=== PATIENT | female | born 1990 | race Asian ===

== ENCOUNTER 2024-07-27 03:56 | Inpatient (IN) ==
[2024-07-27] MEDS ORDERED: CALCIUM CARBONATE 500 MG CHEWABLE TAB PO PRN (08:15)
[2024-07-27] MEDS ORDERED: LIDOCAINE 1% LOCAL 20 ML VIAL INFIL PRN (08:15)
--- NOTE | 2024-07-27 08:19 | History & Physical Report ---
Date of Service July 27, 2024 Assessment & Plan (1) Normal labor: Plan admit, iv, labs. pt undecided re: epidural, concerned about lack of sleep. fhts categ 1. History of Present Illness Chief Complaint: labor check Primary Care Provider: BRIT PCP 34yo at 39wks chantel presents to LD with concern for regular ctx. Was in LD yesterday am and 4cm with no labor pattern and opted to go home, did not want interventions. Then called early this am with more regular ctx and arrived in LD, initial sve per nurse 5cm. Notes painful ctx. Cannot really tell me how regular they are. +FM. No rom, No vb. PNC c/b 1. hep b infection 2. ama PNL rh pos, ri, gbs neg. OBH: sab x 1 GYNH: nl paps, no stds Allergies Allergy/AdvReac Type Severity Reaction Status Date / Time No Known Allergies Allergy Verified 07/26/24 09:35 Home Medications Medication Instructions Recorded Confirmed Type breast pump #1 ea 05/09/24 07/24/24 Rx vits no.124-ferrous fum 1 tab PO DAILY 07/26/24 07/26/24 History 27 mg iron-folic acid 800 mcg tablet ( Vitamin) Patient History Medical History (Updated 07/27/24 @ 08:18 by Hilda Garcia MD, FACOG) History of chicken pox Surgical History S/P wisdom tooth extraction Family History (Updated 12/25/23 @ 14:13 by Janee Ledezma) Denies family history of Ovarian cancer Breast cancer Colorectal cancer Social History (Updated 07/27/24 @ 04:23 by Briseyda Clarke, HAZEL) Smoking Status: Never smoker Do You Dip or Chew Tobacco: No; Hx Alcohol Use: No Hx Substance Use: No Preferred Language: Korean Communication Ability: Effective Visual Impairment: Limited Hearing Ability: Normal Microcomputer Technician Required: No Beliefs That Will Affect Care: None marital status: marital status details: Bruce Layne ([phone] Current Living Situation: Alone Current Living Situation Comment: lives in [place] working at another college, see on breaks current occupational status: employed current occupation: teacher [employer] Other Information That Helps Us Care for You: No Feels Safe at Home: Yes Safety Concerns: Feels Safe At This Time Diet: regular Assistive Devices: Glasses Review of Systems as per Subjective / HPI Physical Exam Constitutional: WD/WN, vitals as above Gastrointestinal (Abdomen): soft gravid nt Neurologic: grossly normal Psychiatric: A+Ox3, euthymic affect Genitourinary: Manual OB Exam: + cervical dilation 8 cm, + cervical effacement 100% and + station 0 OB Exam Monitor Tracing: + external FHT monitor used, + external uterine monitor used (q2-4), + category I and + normal FHT variability Results & Data Vital Signs (Past 12 Hours) Vital Signs Temp Pulse Resp BP 07/27/24 07:17 64 112/72 07/27/24 04:24 59 L 138/82 07/27/24 04:12 59 L 138/82 07/27/24 04:10 18 07/27/24 04:10 97.7 F 18 Coding Level of Care Code None Diagnoses Normal labor O80; Z37.9
[2024-07-27 09:22] LABS: Hematocrit (blood only) 38.8 % (37.0-47.0); Hemoglobin 13.2 g/dl (12.0-16.0); Mean Corpuscular Hemoglobin 29.3 pg (25.0-34.0); Mean Platelet Volume 10.8 fL (9.4-12.4); Platelet Count 211 K/uL (130-400); RDW Standard Deviation 43.9 fL (36.4-46.3); Red Blood Count 4.51 M/uL (4.20-5.40); White Blood Count 10.77 K/ul (4.8-10.8)
[2024-07-27] MEDS: SODIUM CHLORIDE 0.9% 1,000 ML IV SCH (09:30)
[2024-07-27] MEDS: fentANYL 2 MCG/ML BUPIVacaine 0.125%-NSS 100ML BAG ONE (10:16)
[2024-07-27] MEDS: BUPIVACAINE 0.25% PF 30 ML VIAL ONE (10:18)
[2024-07-27] MEDS: LIDOCAINE 2%/EPINEPHRINE 1:200,000 20 ML PF ONE (10:18)
--- NOTE | 2024-07-27 10:28 | Anesthesiology Consultation ---
Date of Service July 27, 2024 Assessment & Plan Chart Review Chart Review: Acceptable Risk for Labor Epidural Consults Requested none History Height/Weight Height: 5 ft 3 in Weight: 66.95 kg Allergies Allergy/AdvReac Type Severity Reaction Status Date / Time No Known Allergies Allergy Verified 07/26/24 09:35 Medications Home Medications Medication Instructions Recorded Confirmed Last Taken breast pump #1 ea 05/09/24 07/24/24 Unknown vits no.124-ferrous fum 1 tab PO DAILY 07/26/24 07/26/24 07/26/24 27 mg iron-folic acid 800 mcg tablet ( Vitamin) Past Medical History Medical History (Updated 07/27/24 @ 08:18 by Hilda Garcia MD, FACOG) History of chicken pox Past Family History Family History (Updated 12/25/23 @ 14:13 by Janee Ledezma) Denies family history of Ovarian cancer Breast cancer Colorectal cancer Past Surgical History Surgical History S/P wisdom tooth extraction Social History Smoking Status: Never smoker Do You Dip or Chew Tobacco: No Hx Alcohol Use: No Hx Substance Use: No substance use type: does not use Physical Exam Vital Signs Last Vital Signs Temp 36.5 C 07/27/24 04:10 Pulse 91 H 07/27/24 10:25 Resp 18 07/27/24 04:10 BP 99/58 L 07/27/24 10:21 Pulse Ox 99 07/27/24 10:25 Testing Laboratory Results 07/27/24 08:32
[2024-07-27] MEDS ORDERED: ROPIVACAINE 0.5% PF 5 MG/ML 20 ML VIAL EPI PRN (10:29)
[2024-07-27] MEDS ORDERED: NALOXONE HCL 0.4 MG/1 ML VIAL/CARP IV PRN (10:29)
[2024-07-27] MEDS ORDERED: fentaNYL citrate PF 100 MCG/2 ML VIAL EPI PRN (10:29)
[2024-07-27] MEDS ORDERED: NALOXONE HCL 1 MG in SODIUM CHLORIDE 0.9% 1,000 ML IV PRN (10:29)
[2024-07-27] MEDS ORDERED: LIDOCAINE 2% MPF LOCAL 5 ML VIAL EPI PRN (10:29)
[2024-07-27] MEDS ORDERED: diphenhydrAMINE 50 MG/ML VIAL IV PRN (10:29)
[2024-07-27] MEDS ORDERED: NALBUPHINE HCL INJ 10 MG/ML AMP IV PRN (10:29)
[2024-07-27] MEDS ORDERED: SODIUM CHLORIDE 0.9% PF INJ 10 ML VIAL EPI PRN (10:29)
[2024-07-27] MEDS ORDERED: ePHEDrine sulfate 50 MG/ML AMP IV PRN (10:29)
[2024-07-27] MEDS ORDERED: BUPIVACAINE 0.25% PF 30 ML VIAL EPI PRN (10:29)
[2024-07-27] MEDS: fentaNYL citrate PF 100 MCG/2 ML VIAL ONE (10:38)
[2024-07-27] MEDS: LIDOCAINE 2%/EPINEPHRINE 1:200,000 20 ML PF EPI STA (10:39)
[2024-07-27] MEDS: SODIUM CHLORIDE 0.9% PF INJ 10 ML VIAL ONE (10:39)
[2024-07-27] MEDS: BUPIVACAINE 0.25% PF 30 ML VIAL EPI STA (10:39)
[2024-07-27] MEDS: SODIUM CHLORIDE 0.9% PF INJ 10 ML VIAL EPI STA (10:39)
[2024-07-27] MEDS: fentaNYL citrate PF 100 MCG/2 ML VIAL EPI STA (10:39)
[2024-07-27] MEDS: ePHEDrine sulfate 50 MG/ML AMP ONE (10:39)
[2024-07-27] MEDS: OXYTOCIN 30 UNITS/NSS 30 UNITS/500 ML BAG IV PRN (14:41)
[2024-07-27] MEDS: fentANYL 2 MCG/ML BUPIVacaine 0.125%-NSS 100ML BAG EPI PRN (19:22)
[2024-07-27] MEDS ORDERED: Nursing to Pharmacy Communication SCH (23:17)
[2024-07-28] MEDS: OXYTOCIN 30 UNITS/NSS 30 UNITS/500 ML BAG IV PRN (01:40)
--- NOTE | 2024-07-28 01:45 | Delivery Summary ---
Vaginal Delivery Summary Date of Service July 28, 2024 Vaginal Delivery Summary VAVD Vacuum-assisted vaginal delivery the patient had been in labor for some time when I took over corrections caseworker at 8:30 in the morning she was 8 cm she eventually progressed to fully dilated and also had an epidural somewhere after 1 in the morning the next day she stated she was exhausted the station was +2 at this time I suggested the option of a gentle vacuum she agreed discussed risks and benefits verbal consent Bladder was drained for approximately 100 cc prior position was occiput anterior +2 station Kiwi vacuum applied with just 1 gentle pull and a very small episiotomy as she was already tearing vaginally during pushing allowed for easy delivery of the head once the head was delivered vacuum was detached gentle traction the baby easy delivery no excessive force. Live vigorous female infant Cord gases obtained cord blood obtained placenta removed with traction IV Pitocin started vaginal tearing and episiotomy were repaired tissue was notably friable hemostasis was obtained though with 3-0 Vicryl and pressure from sponge quantitative blood loss 464 mL sponge and instrument counts correct [facility] Vaginal Delivery Charge Delivery Type Details: VAVD
[2024-07-28] MEDS ORDERED: ACETAMINOPHEN 325 MG TAB PO PRN (02:19)
[2024-07-28] MEDS ORDERED: HYDROCORTISONE ACETATE 25 MG SUPP PR PRN (02:19)
[2024-07-28] MEDS ORDERED: DIPHTHER/TETAN/PERTUS Vaccine (Tdap, Adol/Adult) 0.5mL IM ONE (02:19)
[2024-07-28] MEDS ORDERED: OXYTOCIN 30 UNITS/NSS 30 UNITS/500 ML BAG IV PRN (02:19)
[2024-07-28 02:30] LABS: Base Excess Cord Arterial Bld -6.1 mEq/L (-9-1.8); Base Excess Cord Venous Blood -4.8 mEq/L (-7.7-1.9); CO2 Cord Arterial Blood 47 mmHg (39.1-73.5); Cord Venous Blood HCO3 21 mmol/L (18.4-26.8); Cord Venous Blood PCO2 38 mmHg (30.4-57.2); Cord Venous Blood PO2 30 mmHg (14.1-43.3); Cord Venous Blood pH 7.34 (7.20-7.44); HCO3 Cord Arterial Blood 21 mmol/L (19.7-28.5); Oxygen Sat Cord Arterial Blood < 60.0 % (<60); PO2 Cord Arterial Blood < 20 mmHg (4.1-31.7); pH Cord Arterial Blood 7.26 (7.1-7.38)
[2024-07-28] MEDS: IBUPROFEN 600 MG TAB PO PRN (03:57)
[2024-07-28] MEDS: BENZOCAINE 20% SPRY 85 APPLN/85 GM CAN EXT PRN (03:59)
--- NOTE | 2024-07-28 08:18 | Obstetrical Progress Note ---
Date of Service July 28, 2024 day 0 from vaginosis vacuum delivery patient felt somewhat lightheaded last night and still is having some vaginal bleeding otherwise is doing well feeding baby pain is controlled Assessment & Plan (1) Normal labor: Vacuum-assisted vaginal delivery will watch closely Results & Data Vital Signs (Past 12 Hours) Vital Signs Temp Pulse Pulse Resp BP BP Pulse Ox 07/28/24 04:25 98.4 F 89 16 122/75 98 07/28/24 04:13 110 H 109/70 07/28/24 03:47 118 H 112/66 07/28/24 03:16 97 H 111/70 07/28/24 03:15 18 07/28/24 02:45 18 07/28/24 02:43 120 H 118/69 07/28/24 02:30 16 07/28/24 02:28 126 H 118/65 07/28/24 02:15 16 07/28/24 02:12 126 H 124/61 07/28/24 02:00 16 07/28/24 01:57 115 H 114/58 L 07/28/24 01:45 97.7 F 18 07/28/24 01:43 99 H 107/58 L 07/28/24 01:40 111 H 98 07/28/24 01:35 109 H 98 07/28/24 01:30 114 H 98 07/28/24 01:28 116 H 116/61 07/28/24 01:25 111 H 99 07/28/24 01:20 120 H 99 07/28/24 01:15 102 H 99 07/28/24 01:14 100 H 140/91 07/28/24 01:10 84 98 07/28/24 01:05 81 99 07/28/24 01:03 106 H 93 07/28/24 01:00 74 98 07/28/24 00:59 22 07/28/24 00:59 22 07/28/24 00:58 130 H 128/60 92 07/28/24 00:55 82 98 07/28/24 00:52 82 93 07/28/24 00:50 81 97 07/28/24 00:45 86 99 07/28/24 00:43 82 118/62 07/28/24 00:40 99 H 90 07/28/24 00:35 92 H 98 07/28/24 00:33 91 H 92 07/28/24 00:30 99 07/28/24 00:30 86 07/28/24 00:30 83 128/86 07/28/24 00:25 120 H 96 07/28/24 00:24 92 H 89 L 07/28/24 00:20 89 98 07/28/24 00:15 72 99 07/28/24 00:10 72 99 07/28/24 00:05 77 99 07/28/24 00:00 70 99 07/27/24 23:58 71 133/80 07/27/24 23:55 81 98 07/27/24 23:50 74 99 07/27/24 23:45 81 98 07/27/24 23:44 72 145/82 H 07/27/24 23:40 71 99 07/27/24 23:35 75 98 07/27/24 23:30 72 98 07/27/24 23:29 72 18 140/82 07/27/24 23:25 88 97 07/27/24 23:20 74 98 07/27/24 23:15 72 99 07/27/24 23:13 73 132/80 07/27/24 23:10 76 98 07/27/24 23:09 98.6 F 07/27/24 23:05 73 97 07/27/24 23:00 72 18 98 07/27/24 22:57 75 137/84 07/27/24 22:55 71 98 07/27/24 22:50 71 98 07/27/24 22:45 69 98 07/27/24 22:42 67 138/81 07/27/24 22:40 74 98 07/27/24 22:35 68 99 07/27/24 22:30 73 99 07/27/24 22:28 69 135/83 07/27/24 22:25 72 98 07/27/24 22:20 80 98 07/27/24 22:15 68 98 07/27/24 22:13 67 111/60 07/27/24 22:10 69 97 07/27/24 22:05 68 97 07/27/24 22:00 69 97 07/27/24 21:59 72 117/69 07/27/24 21:58 16 07/27/24 21:58 16 07/27/24 21:55 97 H 96 07/27/24 21:50 74 96 07/27/24 21:45 88 97 07/27/24 21:42 75 119/75 07/27/24 21:40 76 97 07/27/24 21:35 75 96 07/27/24 21:30 87 97 07/27/24 21:29 16 07/27/24 21:29 16 07/27/24 21:28 75 118/75 07/27/24 21:25 83 98 07/27/24 21:20 75 97 07/27/24 21:15 64 97 07/27/24 21:13 98.4 F 07/27/24 21:10 85 97 07/27/24 21:05 68 98 07/27/24 21:03 97 H 89 L 07/27/24 21:00 67 97 07/27/24 20:59 86 20 131/62 07/27/24 20:55 70 88 L 07/27/24 20:50 76 96 07/27/24 20:45 65 97 07/27/24 20:43 68 112/68 07/27/24 20:40 115 H 97 07/27/24 20:35 94 H 97 07/27/24 20:30 70 97 07/27/24 20:29 20 07/27/24 20:29 20 07/27/24 20:28 68 101/58 L 07/27/24 20:25 62 98 07/27/24 20:20 75 97 O2 Del Method 07/28/24 04:25 Room Air 07/28/24 04:13 07/28/24 03:47 07/28/24 03:16 07/28/24 03:15 07/28/24 02:45 07/28/24 02:43 07/28/24 02:30 07/28/24 02:28 07/28/24 02:15 07/28/24 02:12 07/28/24 02:00 07/28/24 01:57 07/28/24 01:45 07/28/24 01:43 07/28/24 01:40 07/28/24 01:35 07/28/24 01:30 07/28/24 01:28 07/28/24 01:25 07/28/24 01:20 07/28/24 01:15 07/28/24 01:14 07/28/24 01:10 07/28/24 01:05 07/28/24 01:03 07/28/24 01:00 07/28/24 00:59 07/28/24 00:59 07/28/24 00:58 07/28/24 00:55 07/28/24 00:52 07/28/24 00:50 07/28/24 00:45 07/28/24 00:43 07/28/24 00:40 07/28/24 00:35 07/28/24 00:33 07/28/24 00:30 07/28/24 00:30 07/28/24 00:30 07/28/24 00:25 07/28/24 00:24 07/28/24 00:20 07/28/24 00:15 07/28/24 00:10 07/28/24 00:05 07/28/24 00:00 07/27/24 23:58 07/27/24 23:55 07/27/24 23:50 07/27/24 23:45 07/27/24 23:44 07/27/24 23:40 07/27/24 23:35 07/27/24 23:30 07/27/24 23:29 07/27/24 23:25 07/27/24 23:20 07/27/24 23:15 07/27/24 23:13 07/27/24 23:10 07/27/24 23:09 07/27/24 23:05 07/27/24 23:00 07/27/24 22:57 07/27/24 22:55 07/27/24 22:50 07/27/24 22:45 07/27/24 22:42 07/27/24 22:40 07/27/24 22:35 07/27/24 22:30 07/27/24 22:28 07/27/24 22:25 07/27/24 22:20 07/27/24 22:15 07/27/24 22:13 07/27/24 22:10 07/27/24 22:05 07/27/24 22:00 07/27/24 21:59 07/27/24 21:58 07/27/24 21:58 07/27/24 21:55 07/27/24 21:50 07/27/24 21:45 07/27/24 21:42 07/27/24 21:40 07/27/24 21:35 07/27/24 21:30 07/27/24 21:29 07/27/24 21:29 07/27/24 21:28 07/27/24 21:25 07/27/24 21:20 07/27/24 21:15 07/27/24 21:13 07/27/24 21:10 07/27/24 21:05 07/27/24 21:03 07/27/24 21:00 07/27/24 20:59 07/27/24 20:55 07/27/24 20:50 07/27/24 20:45 07/27/24 20:43 07/27/24 20:40 07/27/24 20:35 07/27/24 20:30 07/27/24 20:29 07/27/24 20:29 07/27/24 20:28 07/27/24 20:25 07/27/24 20:20
[2024-07-28] MEDS: PRENATAL VITAMIN 1 TAB PO SCH (08:34)
[2024-07-28] MEDS: DOCUSATE SODIUM 100 MG CAP PO SCH (08:34)
--- NOTE | 2024-07-28 09:59 | Anesthesia Procedure Note ---
Date of Service July 28, 2024 Anesthesia Post Epidural Note Vital Signs Vital Signs: Temp Pulse Resp BP Pulse Ox O2 Del Method 36.3 C L 80 16 100/62 97 Room Air 07/28/24 08:12 07/28/24 08:12 07/28/24 08:12 07/28/24 08:12 07/28/24 08:12 07/28/24 08:12 Notes Mental Status: alert / awake / arousable Nausea / Vomiting: adequately controlled Pain: adequately controlled Airway Patency, RR, SpO2: stable & adequate BP & HR: stable & adequate Hydration State: stable & adequate Neuraxial Anesthesia: was administered and sensory block is resolving Anesthetic Complications: no major complications apparent and Pt Satisfied with anesthetic care Epidural: Removed without complications and With tip intact
[2024-07-28 11:09] LABS: Hematocrit (blood only) 26.3 % (37.0-47.0); Hemoglobin 9.1 g/dl (12.0-16.0)
[2024-07-29 06:05] LABS: Hematocrit (blood only) 25.5 % (37.0-47.0); Hemoglobin 8.6 g/dl (12.0-16.0); Mean Corpuscular Hemoglobin 29.6 pg (25.0-34.0); Mean Corpuscular Hgb Conc 33.7 g/dL (32.0-36.0); Mean Corpuscular Volume 87.6 fL (80.0-100.0); Mean Platelet Volume 10.7 fL (9.4-12.4); Platelet Count 155 K/uL (130-400); RDW Coefficient of Variation 14.4 % (11.5-14.5); RDW Standard Deviation 45.4 fL (36.4-46.3); Red Blood Count 2.91 M/uL (4.20-5.40); White Blood Count 11.87 K/ul (4.8-10.8)
--- NOTE | 2024-07-29 07:15 | Obstetrical Progress Note ---
Date of Service July 29, 2024 Assessment & Plan (1) Normal labor: day #1 from vacuum deliver slightly anemic we discussed taking iron at home she is doing well continue to work on breast-feeding plan be for discharge tomorrow Subjective Ambulation: ambulating normally Voiding: no voiding problems Passing Gas:: Yes Diet Tolerance:: regular diet Lochia:: Small Physical Exam Constitutional WD/WN, vitals as above well developed and well nourished Respiratory normal respiratory effort, lungs clear to auscultation normal respiratory effort Cardiovascular RRR, no murmur, no edema Gastrointestinal (Abdomen) normal bowel sounds, soft, nontender, no hepatosplenomegaly Results & Data Vital Signs (Past 12 Hours) Vital Signs Temp Pulse Resp BP O2 Del Method 07/28/24 23:20 97.5 F L 76 16 98/54 L 07/28/24 19:30 97.3 F L 84 16 94/62 L Room Air
[2024-07-29] MEDS: bisacodyL 5 MG TABEC PO SCH (20:24)
[2024-07-30] MEDS ORDERED: bisacodyL 10 MG SUPP PR PRN (02:19)
[2024-07-30 06:23] LABS: Hematocrit (blood only) 27.5 % (37.0-47.0); Hemoglobin 9.3 g/dl (12.0-16.0)
--- NOTE | 2024-07-30 07:16 | Obstetrical Progress Note ---
Date of Service July 30, 2024 Assessment & Plan (1) Normal labor: Plan: Both mom and baby doing well. Discharge today; ready to go home. Admission and Anticipated Discharge Date Admission Date: July 27, 2024 Supervising Physician Co-Signing Physician Notes Resident Physician Supervision Note: I interviewed and examined the patient. Discussed with Dr. Carolina and agree with findings and plan as documented in the note. Any exceptions or clarifications are listed here: Doing well. Routine care. d/c home later today. Instructions given. Documented By: Katerin Figueroa MD, FACOG Subjective 2nd PPD Day following years at 39 week POG. No active complains Both mom and baby doing well. Pain: Mild, intermittent Lochia: Moderate Diet: Regular Ob diet Gas: Passed Peeing: Normal, no bladder distension Ambulation: Normally Review of Systems Review of Systems: No SOB, chest pain, leg pain No dizziness, headache, palpitation No Blurring of vision , fever Physical Exam Physical Exam: General: Alert and oriented. No acute distress. CVS: S1 S2+ No murmurs, regular rhythm. Respiratory: CTA bilaterally. No rhonchi, wheezes, or crackles. No increased work of breathing. Abdomen: Bowel sound +. Soft, nontender Uterus: Fundus firm and palpable few cm below the umbilicus. Lower extremities: No LE edema. No deep calf pain. Results & Data Vital Signs (Past 12 Hours) Vital Signs Temp Pulse Resp BP Pulse Ox O2 Del Method 07/29/24 23:30 36.6 C 67 16 94/55 L 96 Room Air 07/29/24 20:30 36.6 C 74 16 109/74 97 Room Air
[2024-07-30 09:59] VITALS: RESP 18
[2024-07-30 15:38] VITALS: BP 113/71; PULSE 77; TEMP 97.7; O2SAT 98
== END 2024-07-30 17:30 | disposition home or self-care (01) | DRG 807 ==
LOC: 4S1 03:56 → OPB 03:56 → 4S1 04:00 → 4E2 07-28 05:04